=== PATIENT | male | born 1950 | race Caucasian/White ===

== ENCOUNTER 2022-04-10 15:21 | Emergency (ER) | payer MEDICARE, BC ==
[2022-04-10 16:18] LABS: #Eosinphils 0.2 10x3/uL (0.0-0.5); #Monocytes 0.7 10x3/uL (0.0-1.1); #Neutrophils 4.1 10x3/uL (1.5-8.4); %Basophils 0.6 % (0.0-2.0); %Eosinophils 2.9 % (0.0-6.0); %Lymphocytes 26.1 % (18.0-47.0); %Monocytes 9.7 % (0.0-10.0); %Neutrophils 60.4 % (40.0-75.0); Hemoglobin 12.3 g/dL (13.5-17.5); Mean Corpuscular HGB CONC 33.2 g/dL (32.0-36.0); Mean Corpuscular Hemoglobin 30.9 pg (27.0-33.0); Platelet Count 221 10x3/uL (150-450); Red Blood Cell (RBC) Count 3.98 10x6/uL (4.32-5.72); White Blood Cell (WBC) Count 6.8 10x3/uL (3.5-10.5)
[2022-04-10 16:27] LABS: ALT (SGPT) 17 U/L (8-55); AST (SGOT) 19 U/L (5-34); Alkaline Phosphatase 48 U/L (40-110); Anion Gap 12 mmol/L (10-20); BUN (Urea Nitrogen) 14 mg/dL (8.4-25.7); Bilirubin, Total 0.6 mg/dL (0.2-1.2); Calc. Creatinine Clearance 0 mL/min (70-130); Calcium 8.7 mg/dL (7.8-10.44); Carbon Dioxide 23 mmol/L (23-31); Chloride 104 mmol/L (98-107); Estimated GFR 71; Glucose 143 mg/dL (80-115); Potassium 4.3 mmol/L (3.5-5.1); Sodium 135 mmol/L (136-145)
== END 2022-04-10 17:25 | disposition home or self-care (01) ==
LOC: CSHERS 15:21
DX: M54.12 Radiculopathy, cervical region (principal); I48.91 Unspecified atrial fibrillation; E78.5 Hyperlipidemia, unspecified; I10 Essential (primary) hypertension; E11.9 Type 2 diabetes mellitus without complications
CPT/HCPCS: 70450; 71045; 72125; 84484; 93005; 94760

== ENCOUNTER 2022-04-25 09:37 | Outpatient (CLI) | payer MEDICARE, BC | END 2022-04-25 09:38 | disposition home or self-care (01) | LOC: CSHMRI 09:37 | PROVIDERS: ATTEND Family Medicine | DX: R20.0 Anesthesia of skin (principal); M54.12 Radiculopathy, cervical region; I63.81 Other cerebral infarction due to occlusion or stenosis of small artery; M48.02 Spinal stenosis, cervical region; M47.12 Other spondylosis with myelopathy, cervical region | CPT/HCPCS: 70551; 72141 ==

== ENCOUNTER 2022-10-20 11:35 | Outpatient (CLI) | payer MEDICARE, BC | END 2022-10-20 11:36 | disposition home or self-care (01) | LOC: CSHRAD 11:35 | PROVIDERS: ATTEND Internal Medicine Rheumatology | DX: M81.0 Age-related osteoporosis without current pathological fracture (principal) | CPT/HCPCS: 72072 ==